=== PATIENT | female | born 1965 | race Caucasian/White ===

== ENCOUNTER → 2019-09-24 | Outpatient (CLI) | payer OTHER ==
--- NOTE | 2019-09-24 15:12 | KCIC ---
MRI Lumbar Spine without contrast History: Low back pain, left hip pain and leg pain Technique: Multiplanar, multi sequential noncontrast MR imaging was performed of the lumbar spine. Comparison: None Findings: There is some motion. Lumbar vertebral body stature and AP alignment are maintained. Conus terminates at L1-2. There is mild disc desiccation L3-4. There is no significant focal marrow edema. There is degenerative change of the anterior superior corner of L4, also the anterior, inferior corner of T12. Incidental note is made of retroaortic left renal vein. L1-L2: Spinal canal and neural foramina are adequate. L2-L3: Neural foramina and spinal canal are adequate. L3-L4: There is mild buckling of the ligamentum flavum and facet hypertrophic change. Spinal canal and neural foramina are adequate. There is anterior annular tear. L4-L5: There is mild facet hypertrophic change. Spinal canal and neural foramina are adequate. L5-S1: Spinal canal and neural foramina are adequate. There is minimal facet degenerative change. Impression: 1. There is no significant lumbar spinal stenosis or neural foramina compromise. There is mild disc desiccation L3-4. Electronically signed by: Mahesh Moreno MD (09/24/2019 3:09 PM) [id number]
--- NOTE | 2019-09-24 15:19 | KCIC ---
MRI Cervical Spine Without Contrast History:Neck pain, left arm and shoulder pain, headaches and dizziness Technique: Multiplanar, multi sequential noncontrast MR imaging was performed of the cervical spine. Comparison: None Findings: There is some motion degradation. Cervical cord caliber is within normal limits, no defined or expansile signal change. There is no significant focal marrow edema. Cervical vertebral body stature is maintained. There is negligible anterior spondylolisthesis C6-7 and C2-3. There is jhss-tk-vifycati degenerative disc disease greater anteriorly at C6-7, minimally at C5-C6. There is small hemangioma or focus of fatty marrow replacement of the anterior C5 vertebral body. C2-C3: Spinal canal and neural foramina are adequate. C3-C4: Neural foramina and spinal canal are adequate. There is bilateral facet degenerative change and small foci of cystic change associated with the right facet articulation. C4-C5: Neural foramina and spinal canal are adequate. There is mild facet degenerative change. C5-C6: There is bilateral facet degenerative change. Neural foramina and spinal canal are adequate. C6-C7: There is disc osteophyte complex and bulge/broad protrusion about 2 to 3 mm AP indenting the ventral thecal sac. Central canal is minimally narrowed to about 8 to 9 mm. There is bilateral facet degenerative change, also degree of left uncovertebral degenerative change. Right neural foramen is adequate. There is ujtx-zd-hybjdsns narrowing of the left neural foramen. C7-T1: Spinal canal and neural foramina are adequate. Impression: 1. There is mild spinal stenosis about 8 to 9 mm at C6-7. There is srmq-cd-zvopgkup narrowing of the left C6-7 neural foramen due to facet and uncovertebral degenerative change. There is degenerative disc disease greatest at C6-7 and to lesser degree at C5-6. Electronically signed by: Mahesh Moreno MD (09/24/2019 3:16 PM) [id number]
== END | disposition home or self-care (01) ==
LOC: KCIC MRI 13:51
PROVIDERS: ATTEND Family Medicine
DX: M50.323 Other cervical disc degeneration at C6-C7 level (principal); M48.02 Spinal stenosis, cervical region; M25.78 Osteophyte, vertebrae; M47.892 Other spondylosis, cervical region; V89.2XXA Person injured in unspecified motor-vehicle accident, traffic, initial encounter; Y93.89 Activity, other specified; Y92.89 Other specified places as the place of occurrence of the external cause; Y99.8 Other external cause status
CPT/HCPCS: 72141; 72148

== ENCOUNTER → 2019-12-16 | Outpatient (CLI) | payer OTHER ==
[~2019-12-16] MED LIST: CONTRAST GIVEN. MC PRN; IOHEXOL 300 MG/ML 100ML VIAL. IV ONE
[2019-12-16 08:44] LABS: CREATININE 0.8 mg/dL (0.6-1.0); GFR 74.5
--- NOTE | 2019-12-16 10:38 | RAD ---
EXAM: CT ANGIOGRAPHY HEAD AND NECK DATE: 12/16/2019 9:00 AM INDICATION: DIZZINESS TECHNIQUE: 5 mm axial tomographic images were obtained through the head before contrast. CTA angiogram of the head and neck was obtained after IV bolus administration of 75 cc of Omnipaque 300. The images were sent to workstation and multiplanar reconstructions were obtained. Multiplanar reconstruction images to include MIP and 3-D reconstruction images are submitted. One or more of the following dose reduction techniques were utilized: Automated exposure control (AEC), Adjustment of mA and/or kV according to patient size, Use of iterative reconstruction technique such as ASiR, CT scan done according to ALARA and image gently/image wisely COMPARISON: None. FINDINGS: Noncontrast CT: The brain parenchyma is normal in attenuation. No hyperdense intracranial hemorrhage. The ventricles are normal in size and configuration without midline shift. There is normal levy-white matter differentiation. The subarachnoid cisterns are patent. Mild prominence of the left frontal parafalcine extra-axial CSF space, could be due to arachnoid cyst or asymmetric atrophy. Trace right mastoid fluid. The mastoid air cells are clear. The visualized portions of the orbits are normal. No aggressive osseous lesion or fracture. CTA Head: The visualized distal internal carotid arteries, anterior and middle cerebral arteries are patent and normal caliber. The distal vertebral arteries, basilar artery, and posterior cerebral arteries are patent and normal caliber. No aneurysm or arteriovenous malformation is seen. CTA Neck: Right carotid: The right common carotid artery is patent and normal caliber. The carotid bifurcation is normal. No stenosis of the right internal carotid artery per NASCET criteria. The right external carotid artery is patent. Left carotid: The left common carotid artery is patent and normal caliber. The carotid bifurcation is normal. No stenosis of the left internal carotid artery per NASCET criteria. 75 percent stenosis of the left external carotid artery origin, which is otherwise patent distally. Right vertebral: The right vertebral artery is patent and normal caliber. Left vertebral: The left vertebral artery is patent and normal caliber. The visualized portions of the aortic arch are normal. The origins of the brachiocephalic and subclavian arteries are normal. No cervical lymphadenopathy. The thyroid gland is normal. The parotid and submandibular glands are normal. The visualized aerodigestive tract is unremarkable. Mild to moderate multilevel degenerative disc height loss. Multilevel disc protrusions and marginal osteophytes results in multilevel spinal canal stenosis. Multilevel uncovertebral and facet arthrosis with multilevel neural foraminal narrowing. The visualized portions of the lungs are clear. IMPRESSION: 1. No acute intracranial process by noncontrast head CT. 2. No aneurysm. No intracranial stenosis or occlusion. 3. No stenosis of the internal carotid arteries. PQRS Compliance Statement - Stenosis calculations for CT, MR and conventional angiography are based upon measurement of the distal ICA diameter in accordance with the NASCET methodology. Electronically signed by: Mahesh Solares MD (12/16/2019 10:35 AM) [id number]
== END | disposition home or self-care (01) ==
LOC: CT 08:38
PROVIDERS: ATTEND Nurse Practitioner Family
DX: R42 Dizziness and giddiness (principal); M25.78 Osteophyte, vertebrae; M19.90 Unspecified osteoarthritis, unspecified site
CPT/HCPCS: 36415; 70496; 70498; 82565; 84520; Q9967

== ENCOUNTER → 2019-12-24 | Outpatient (CLI) | payer OTHER ==
[~2019-12-24] MED LIST changes: -CONTRAST GIVEN. MC PRN; +IOHEXOL 240 MG/ML 50ML VIAL. PO ONE
--- NOTE | 2019-12-24 12:29 | KCIC ---
CT abdomen and pelvis with contrast History: Right upper quadrant abdominal pain, chronic bloating and constipation Technique: After the administration of intravenous contrast, CT imaging was performed of the abdomen and pelvis. Oral contrast was also given. Multiplanar images are reviewed. Exposure: One or more of the following individualized dose reduction techniques were utilized for this examination: 1. Automated exposure control 2. Adjustment of the mA and/or kV according to patient size 3. Use of iterative reconstruction technique. Comparison: None Findings: There is no significant abnormality of the visualized lung bases. There is no significant focal abnormality of the liver, spleen, pancreas, adrenal glands. There is hepatic steatosis. Both kidneys enhance without hydronephrosis. Incidental note is made of retroaortic left renal vein. There has been cholecystectomy. Bowel is not significantly dilated. There is no free fluid or free air. There is variable retained stool throughout the colon greatest of the ascending and transverse colon. Normal caliber appendix is visualized without adjacent inflammatory change. There is no significant inflammatory type change about the bowel. Impression: 1. There is no significant inflammatory change about the bowel. There is retained stool greater of the right and transverse colon. 2. There is hepatic steatosis. 3. There is incidental retroaortic left renal vein. Electronically signed by: Mahesh Moreno MD (12/24/2019 12:27 PM) [id number]
== END ==
LOC: KCIC CT 08:08
PROVIDERS: ATTEND Internal Medicine Gastroenterology
DX: K76.0 Fatty (change of) liver, not elsewhere classified (principal); K59.00 Constipation, unspecified
CPT/HCPCS: 74177; Q9966; Q9967

== ENCOUNTER → 2021-02-16 | Outpatient (CLI) | payer OTHER ==
--- NOTE | 2021-02-16 16:30 | KCIC ---
EXAM: Cervical spine MRI without contrast. HISTORY: Pain. TECHNIQUE: Multiplanar, multisequence magnetic resonance imaging of the cervical spine was performed without contrast. COMPARISON: 09/24/2019 FINDINGS: There is mild kyphosis centered at C6-C7. There is endplate remodeling and disc space narro wing at this level. There is less significant endplate remodeling at the remainder of the lumbar leve ls. There is no suspicious osseous lesion. There is no fracture. The skull base and posterior fossa a re unremarkable. No spinal cord lesion is seen. At C2-C3, there is mild right facet arthropathy. There is no stenosis. At C3-C4, there is mild bilateral facet arthropathy. There is no stenosis. At C4-C5, there is mild left facet arthropathy. There is no stenosis. At C5-C6, there is mild left facet arthropathy. There is no stenosis. At C6-C7, there is a right lateral recess to foraminal disc protrusion with slight superior extrusion and osteophyte complex superimposed on a disc bulge and endplate remodeling. There is uncovertebral therapy. There is left facet arthropathy. There is kwjk-gm-xcohursp left foraminal stenosis. There is mild central canal stenosis measuring 8.6 mm in anterior posterior dimension. IMPRESSION: 1. C6-C7: Degenerative changes resulting in mild to moderate left foraminal and mild central canal st enosis, not significantly changed compared to the prior study. 2. Minimal degenerative change throughout the remainder the cervical spine, without associated signif icant stenosis. Electronically signed by: Liza Ryan MD (02/16/2021 4:28 PM) [id number]
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
== END ==
LOC: KCIC MRI 13:56
PROVIDERS: ATTEND Family Medicine
DX: M47.812 Spondylosis without myelopathy or radiculopathy, cervical region (principal); M48.02 Spinal stenosis, cervical region; M48.8X2 Other specified spondylopathies, cervical region; M50.223 Other cervical disc displacement at C6-C7 level; M25.78 Osteophyte, vertebrae; M40.292 Other kyphosis, cervical region; M16.12 Unilateral primary osteoarthritis, left hip
CPT/HCPCS: 72141; 73721